=== PATIENT | female | born 2000 | race Two or more races ===

== ENCOUNTER 2020-04-08 10:15 | Inpatient (IN) | payer OTHER ==
[~2020-04-08] VITALS: Ht 154.9 cm; Wt 68.9 kg
[2020-04-15] MEDS ORDERED: PRENATAL CAPLE1 EAC1 PO (12:55)
== END 2020-04-30 18:47 | disposition home or self-care (01) | DRG 807 ==
LOC: OB/GYN 04-22 13:30 → LDR 04-28 09:46 → OB/GYN 04-28 14:39
PROVIDERS: ADMIT Obstetrics & Gynecology; ATTEND Obstetrics & Gynecology
PROC: 10E0XZZ Delivery of Products of Conception, External Approach (ICD-10-PCS; principal; 2020-04-28)
PROC: 10907ZC Drainage of Amniotic Fluid, Therapeutic from Products of Conception, Via Natural or Artificial Opening (ICD-10-PCS; 2020-04-28)
PROC: 0W8NXZZ Division of Female Perineum, External Approach (ICD-10-PCS; 2020-04-28)
PROC: 4A1HXCZ Monitoring of Products of Conception, Cardiac Rate, External Approach (ICD-10-PCS; 2020-04-28)
DX: O80 Encounter for full-term uncomplicated delivery (principal); Z37.0 Single live birth; Z3A.39 39 weeks gestation of pregnancy; Z20.828 Contact with and (suspected) exposure to other viral communicable diseases

== ENCOUNTER 2020-04-15 11:51 | Outpatient (CLI) | payer OTHER ==
[2020-04-15] MEDS ORDERED: PRENATAL CAPLE1 EAC1 PO (12:55)
== END 2020-04-15 22:14 | disposition home or self-care (01) ==
LOC: OBS/DEL 11:51
PROVIDERS: ATTEND Obstetrics & Gynecology
DX: O36.5931 Maternal care for other known or suspected poor fetal growth, third trimester, fetus 1 (principal); O26.843 Uterine size-date discrepancy, third trimester; O36.8131 Decreased fetal movements, third trimester, fetus 1